=== PATIENT | female | born 1965 | race Caucasian/White ===

== ENCOUNTER → 2017-05-13 | Outpatient (REF) | payer BC ==
[~2017-05-13] MED LIST: BIOT300T PO; CHRO200T3 PO; FLAX1300 PO; GLUCTAB6 PO; LEVO125T4 PO; MAGN200T PO; MULTTAB PO; VITA10002 PO; ZOVI1CAP PO
[2017-05-13 11:34] LABS: MEAN CORPUSCULAR HEMOGLOBIN 29.7 pg (27.0-33.0); MEAN CORPUSCULAR HGB CONC 32.8 g/dl (32.0-36.5); MEAN CORPUSCULAR VOLUME 90.5 fl (80.0-96.0); RED CELL DISTRIBUTION WIDTH 13.6 % (11.5-14.5); WHITE BLOOD COUNT 4.3 10^3/uL (4.0-10.0)
[2017-05-13 12:10] LABS: CALCIUM LEVEL 9.7 MG/DL (8.5-10.1); CREATININE FOR GFR 1.15 MG/DL (0.55-1.02); GLOMERULAR FILTRATION RATE 52.8 (>51); POTASSIUM SERUM 4.7 MEQ/L (3.5-5.1)
== END ==
LOC: M SFHCLERA 09:27
PROVIDERS: ATTEND Family Medicine
DX: F41.9 Anxiety disorder, unspecified (principal); E03.9 Hypothyroidism, unspecified

== ENCOUNTER → 2017-05-19 | Outpatient (REF) | payer BC ==
[2017-05-19 19:20] LABS: CREATININE FOR GFR 1.05 MG/DL (0.55-1.02); GLOMERULAR FILTRATION RATE 58.6 (>51); POTASSIUM SERUM 4.3 MEQ/L (3.5-5.1)
== END ==
LOC: M SFHCLERA 16:20
PROVIDERS: ATTEND Family Medicine
DX: R79.9 Abnormal finding of blood chemistry, unspecified (principal)

== ENCOUNTER → 2017-06-23 | Outpatient (REF) | payer BC | LOC: M SFHCLERA 16:14 | PROVIDERS: ATTEND Family Medicine | DX: E03.9 Hypothyroidism, unspecified (principal) ==

== ENCOUNTER → 2017-08-09 | Outpatient (REF) | payer BC ==
[2017-08-09 22:01] LABS: APPEARANCE, URINE HAZY (CLEAR); BACTERIA, URINE AUTO 1+ (NEGATIVE); BILIRUBIN, URINE AUTO NEGATIVE (NEGATIVE); BLOOD, URINE BLOOD NEGATIVE (NEGATIVE); COLOR, URINE YELLOW (YELLOW); GLUCOSE, URINE (UA) AUTO NEGATIVE (NEGATIVE); KETONE, URINE AUTO TRACE mg/dL (NEGATIVE); LEUKOCYTE ESTERASE, URINE AUTO 3+ (NEGATIVE); MUCUS, URINE SMALL (NEGATIVE); NITRITE, URINE AUTO NEGATIVE (NEGATIVE); PROTEIN, URINE AUTO NEGATIVE (NEGATIVE); RBC, URINE AUTO 3 /HPF (0-3); SPECIFIC GRAVITY URINE AUTO 1.026 (1.002-1.035); SQUAMOUS EPITHELIAL CELL UR AU 1 /HPF (0-6); UROBILINOGEN, URINE AUTO 0.2 mg/dL (0.0-2.0); WBC, URINE AUTO 38 /HPF (0-3)
[2017-08-09 22:06] LABS: ESTIMATED AVERAGE GLUCOSE 105 MG/DL (60-110); HEMOGLOBIN A1c 5.3 %
[2017-08-09 22:21] LABS: MAU/CREAT RATIO 6.2 MCG/MG (0.0-30.0)
== END ==
LOC: M SFHCLERA 14:54
DX: R94.4 Abnormal results of kidney function studies (principal)
CPT/HCPCS: 83036

== ENCOUNTER → 2017-08-10 | Outpatient (REF) | payer BC | LOC: M SFHCLERA 17:47 | DX: R82.90 Unspecified abnormal findings in urine (principal) ==

== ENCOUNTER → 2017-08-13 | Outpatient (CLI) | payer BC | LOC: M RAD 09:07 | DX: R94.4 Abnormal results of kidney function studies (principal); R93.421 Abnormal radiologic findings on diagnostic imaging of right kidney | CPT/HCPCS: 76775 ==

== ENCOUNTER → 2017-08-24 | Outpatient (CLI) | payer BC ==
[~2017-08-24] MED LIST changes: -BIOT300T PO; -CHRO200T3 PO; -FLAX1300 PO; +GASTROGRAFIN SOLUTION 30ML (Q9963) As Ordered; -GLUCTAB6 PO; +ISOVUE-370 76% 100ML VIAL (Q9967) As Ordered; -LEVO125T4 PO; -MAGN200T PO; -MULTTAB PO; -VITA10002 PO; -ZOVI1CAP PO
== END ==
LOC: M RAD 11:26
DX: R93.429 Abnormal radiologic findings on diagnostic imaging of unspecified kidney (principal); D18.03 Hemangioma of intra-abdominal structures
CPT/HCPCS: Q9963

== ENCOUNTER → 2017-11-04 | Outpatient (REF) | payer BC ==
[2017-11-04 22:05] LABS: APPEARANCE, URINE CLEAR (CLEAR); BACTERIA, URINE AUTO NEGATIVE (NEGATIVE); BILIRUBIN, URINE AUTO NEGATIVE (NEGATIVE); BLOOD, URINE BLOOD NEGATIVE (NEGATIVE); COLOR, URINE YELLOW (YELLOW); GLUCOSE, URINE (UA) AUTO NEGATIVE (NEGATIVE); KETONE, URINE AUTO NEGATIVE (NEGATIVE); LEUKOCYTE ESTERASE, URINE AUTO 2+ (NEGATIVE); MUCUS, URINE SMALL (NEGATIVE); NITRITE, URINE AUTO NEGATIVE (NEGATIVE); PROTEIN, URINE AUTO NEGATIVE (NEGATIVE); RBC, URINE AUTO 1 /HPF (0-3); SPECIFIC GRAVITY URINE AUTO 1.015 (1.002-1.035); SQUAMOUS EPITHELIAL CELL UR AU 1 /HPF (0-6); UROBILINOGEN, URINE AUTO 0.2 mg/dL (0.0-2.0); WBC, URINE AUTO 4 /HPF (0-3)
[2017-11-04 22:12] LABS: ESTIMATED AVERAGE GLUCOSE 108 MG/DL (60-110); HEMOGLOBIN A1c 5.4 %
[2017-11-04 22:23] LABS: ANION GAP 6 MEQ/L (8-16); BLOOD UREA NITROGEN 15 MG/DL (7-18); CARBON DIOXIDE LEVEL 29 MEQ/L (21-32); CHLORIDE LEVEL 107 MEQ/L (98-107); CREATININE FOR GFR 1.12 MG/DL (0.55-1.30); GLOMERULAR FILTRATION RATE 54.2 (>51); GLUCOSE, FASTING 101 MG/DL (70-100); POTASSIUM SERUM 4.5 MEQ/L (3.5-5.1); SODIUM LEVEL 142 MEQ/L (136-145)
[2017-11-04 22:48] LABS: CREATININE, URINE 89.2 MG/DL; MALB URINE SIEMENS 8.4 MG/L; MAU/CREAT RATIO 9.4 MCG/MG (0.0-30.0)
== END ==
LOC: M SFHCLERA 16:08
DX: R94.4 Abnormal results of kidney function studies (principal)
CPT/HCPCS: 84443

== ENCOUNTER → 2017-11-08 | Outpatient (CLI) | payer BC | LOC: M RAD 11:07 | DX: M26.603 Bilateral temporomandibular joint disorder, unspecified (principal) | CPT/HCPCS: 70336 ==

== ENCOUNTER → 2017-11-09 | Outpatient (REF) | payer BC | LOC: M SFHCLERA 08:05 | DX: R82.90 Unspecified abnormal findings in urine (principal) | CPT/HCPCS: 87086 ==

== ENCOUNTER → 2017-12-29 | Outpatient (REF) | payer BC ==
[2017-12-29 16:43] LABS: HEMATOCRIT 38.8 % (36.0-47.0); HEMOGLOBIN 12.7 g/dl (12.0-15.5); MEAN CORPUSCULAR HEMOGLOBIN 29.5 pg (27.0-33.0); MEAN CORPUSCULAR HGB CONC 32.7 g/dl (32.0-36.5); PLATELET COUNT, AUTOMATED 252 10^3/uL (150-450); RED BLOOD COUNT 4.31 10^6/uL (4.00-5.40); RED CELL DISTRIBUTION WIDTH 13.6 % (11.5-14.5); WHITE BLOOD COUNT 4.7 10^3/uL (4.0-10.0)
[2017-12-29 16:56] LABS: ALBUMIN 4.4 GM/DL (3.2-5.2); ALBUMIN/GLOBULIN RATIO 1.38 (1.00-1.93); ALKALINE PHOSPHATASE 87 U/L (45-117); ALT/SGPT 35 U/L (12-78); ANION GAP 7 MEQ/L (8-16); AST/SGOT 18 U/L (7-37); BILIRUBIN,TOTAL 0.3 MG/DL (0.2-1.0); BLOOD UREA NITROGEN 16 MG/DL (7-18); CALCIUM LEVEL 9.7 MG/DL (8.5-10.1); CARBON DIOXIDE LEVEL 29 MEQ/L (21-32); CHLORIDE LEVEL 106 MEQ/L (98-107); CREATININE FOR GFR 1.12 MG/DL (0.55-1.30); GLOMERULAR FILTRATION RATE 54.2 (>51); GLUCOSE, FASTING 89 MG/DL (70-100); POTASSIUM SERUM 4.9 MEQ/L (3.5-5.1); SODIUM LEVEL 142 MEQ/L (136-145); TOTAL PROTEIN 7.6 GM/DL (6.4-8.2)
== END ==
LOC: M SFHCLERA 11:26
DX: Z01.818 Encounter for other preprocedural examination (principal)
CPT/HCPCS: 80053

== ENCOUNTER → 2018-05-12 | Outpatient (REF) | payer BC | LOC: M SFHCLERA 09:09 | DX: E03.9 Hypothyroidism, unspecified (principal) | CPT/HCPCS: 84443 ==

== ENCOUNTER → 2018-09-27 | Outpatient (CLI) | payer BC ==
[~2018-09-27] MED LIST changes: +BIOT300T3 PO; +CHRO200T3 PO; +FLAX1300 PO; -GASTROGRAFIN SOLUTION 30ML (Q9963) As Ordered; +GLUCTAB6 PO; -ISOVUE-370 76% 100ML VIAL (Q9967) As Ordered; +LEVO125T4 PO; +MAGN200T PO; +MULTTAB PO; +VITA10002 PO; +ZOVI1CAP PO
--- NOTE | 2018-09-28 02:41 | REP ---
Clinical: Right knee pain Technique: AP, lateral, bilateral oblique and sunrise views. Findings: Cortical irregularity and subtle spurring is best noted along the lateral femoral condyle. There is increased sclerosis to the tibial plateau with decreased medial joint space narrowing. Lateral and sunrise views demonstrate subchondral sclerosis along the posterior patellar margin with decreased patellofemoral joint space and marginal spurring as well as fraying along the anterior margin. No acute fracture dislocation. Impression: Moderate tricompartmental osteoarthritic degenerative change. Electronically Signed by Castillo Mar MD 09/28/2018 02:33 A
== END ==
LOC: M LRY 14:40
PROVIDERS: ATTEND Nurse Practitioner Family
DX: M17.11 Unilateral primary osteoarthritis, right knee (principal); M25.561 Pain in right knee

== ENCOUNTER → 2018-11-19 | Outpatient (REF) | payer BC ==
[2018-11-19 19:09] LABS: CALCIUM LEVEL 9.1 MG/DL (8.5-10.1); CHOLESTEROL RISK RATIO 3.955 (<5); CREATININE FOR GFR 1.11 MG/DL (0.55-1.30); GLOMERULAR FILTRATION RATE 54.5 (>51); POTASSIUM SERUM 4.6 MEQ/L (3.5-5.1); THYROID STIMULATING HORMONE 0.366 uIU/ML (0.358-3.740)
== END ==
LOC: M SFHCLERA 09:05
PROVIDERS: ATTEND Family Medicine
DX: E03.9 Hypothyroidism, unspecified (principal); F41.9 Anxiety disorder, unspecified; Z13.220 Encounter for screening for lipoid disorders

== ENCOUNTER → 2019-05-16 | Outpatient (REF) | payer BC ==
[~2019-05-16] MED LIST changes: -BIOT300T3 PO; +BIOT300T8 PO; +CYAN100049 PO; -VITA10002 PO
[2019-05-16 11:33] LABS: BASO % 0.7 % (0.0-1.0); EOS # 0.1 10^3/uL (0.0-0.5); EOS % 1.8 % (0.0-3.0); HEMATOCRIT 35.9 % (36.0-47.0); HEMOGLOBIN 11.7 g/dl (12.0-15.5); LYMPH # 1.5 10^3/uL (1.5-5.0); MEAN CORPUSCULAR HEMOGLOBIN 29.8 pg (27.0-33.0); MEAN CORPUSCULAR HGB CONC 32.6 g/dl (32.0-36.5); MEAN CORPUSCULAR VOLUME 91.6 fl (80.0-96.0); MONO # 0.6 10^3/uL (0.0-0.8); MONO % 12.5 % (0.0-5.0); NEUTROPHILS # 2.4 10^3/uL (1.5-8.5); NEUTROPHILS % 51.6 % (36.0-66.0); PLATELET COUNT, AUTOMATED 295 10^3/uL (150-450); RED BLOOD COUNT 3.92 10^6/uL (4.00-5.40); WHITE BLOOD COUNT 4.6 10^3/uL (4.0-10.0)
[2019-05-16 11:47] LABS: BLOOD UREA NITROGEN 13 MG/DL (7-18); C REACTIVE PROTEIN QUANTITATIV 3.16 MG/DL (0.00-0.30); CALCIUM LEVEL 9.9 MG/DL (8.5-10.1); CARBON DIOXIDE LEVEL 30 MEQ/L (21-32); CHLORIDE LEVEL 108 MEQ/L (98-107); CREATININE FOR GFR 1.07 MG/DL (0.55-1.30); GLOMERULAR FILTRATION RATE 56.9 (>51); GLUCOSE, FASTING 85 MG/DL (70-100); POTASSIUM SERUM 4.4 MEQ/L (3.5-5.1); RHEUMATOID FACTOR QUANT < 10.0 IU/ML (<15.0); SODIUM LEVEL 143 MEQ/L (136-145)
[2019-05-16 12:03] LABS: ERYTHROCYTE SEDIMENTATION RATE 59 mm/hr (0-30)
[2019-05-19 00:11] LABS: ANA (HEP2) Positive (.); CYCLIC CITRULLINATED PEPTIDE 11 units (0-19)
== END ==
LOC: M SFHCLERA 08:06
PROVIDERS: ATTEND Family Medicine
DX: M25.50 Pain in unspecified joint (principal); E03.9 Hypothyroidism, unspecified

== ENCOUNTER → 2019-05-16 | Outpatient (CLI) | payer BC ==
--- NOTE | 2019-05-16 16:25 | REP ---
Four views bilateral hands: 05/16/2019. Indication: Hand pain. Comparison: None. Findings: There is no acute fracture, subluxation or dislocation. No significant arthritic sequelae are present. No erosive lesions of the visualized bones are noted. Impression: No acute fracture or significant arthritic sequelae. Electronically Signed by Ha Morris DO 05/16/2019 04:17 P
== END ==
LOC: M LRY 08:20
PROVIDERS: ATTEND Family Medicine
DX: M25.50 Pain in unspecified joint (principal)

== ENCOUNTER → 2019-06-14 | Outpatient (REF) | payer BC ==
[2019-06-14 20:25] LABS: C REACTIVE PROTEIN QUANTITATIV < 0.30 MG/DL (0.00-0.30); IRON (FE) 50 UG/DL (50-170); PERCENT SATURATION 14.8 % (13.2-45.0); TOTAL IRON BINDING CAPACITY 338 UG/DL (250-450)
[2019-06-14 20:27] LABS: BASO % 0.7 % (0.0-1.0); EOS # 0.1 10^3/uL (0.0-0.5); EOS % 1.5 % (0.0-3.0); HEMATOCRIT 40.2 % (36.0-47.0); HEMOGLOBIN 12.9 g/dl (12.0-15.5); LYMPH # 2.2 10^3/uL (1.5-5.0); LYMPH % 41.3 % (24.0-44.0); MEAN CORPUSCULAR HEMOGLOBIN 29.1 pg (27.0-33.0); MEAN CORPUSCULAR HGB CONC 32.1 g/dl (32.0-36.5); MEAN CORPUSCULAR VOLUME 90.7 fl (80.0-96.0); MONO # 0.6 10^3/uL (0.0-0.8); MONO % 10.7 % (0.0-5.0); NEUTROPHILS # 2.4 10^3/uL (1.5-8.5); NEUTROPHILS % 45.6 % (36.0-66.0); PLATELET COUNT, AUTOMATED 244 10^3/uL (150-450); RED BLOOD COUNT 4.43 10^6/uL (4.00-5.40); WHITE BLOOD COUNT 5.4 10^3/uL (4.0-10.0)
[2019-06-14 20:34] LABS: VITAMIN B12 LEVEL 625 PG/ML
[2019-06-14 20:35] LABS: FOLATE > 24.0 NG/ML
[2019-06-14 20:49] LABS: ERYTHROCYTE SEDIMENTATION RATE 20 mm/hr (0-30)
== END ==
LOC: M SFHCLERA 16:54
PROVIDERS: ATTEND Family Medicine
DX: D64.9 Anemia, unspecified (principal); R79.82 Elevated C-reactive protein (CRP)

== ENCOUNTER → 2019-06-15 | Outpatient (REF) | payer BC ==
[2019-06-19 14:07] LABS: E CHAFFEENSIS IgG TITER Negative (Neg:<1:64); E CHAFFEENSIS IgM TITER Negative (Neg:<1:20); HUMAN GRANULCYTIC EHRLIC IgG Negative (Neg:<1:64); HUMAN GRANULCYTIC EHRLIC IgM Negative (Neg:<1:20); Lyme Disease IgG/IgM Antibodie <0.91 ISR (0.00-0.90); Lyme Disease IgM Ab Quantitati <0.80 index (0.00-0.79)
== END ==
LOC: M SFHCLERA 16:13
PROVIDERS: ATTEND Family Medicine
DX: R53.81 Other malaise (principal); M25.50 Pain in unspecified joint; R50.9 Fever, unspecified; R53.83 Other fatigue

== ENCOUNTER → 2019-12-04 | Outpatient (REF) | payer BC | LOC: M SFHCLERA 16:11 | PROVIDERS: ATTEND Family Medicine | DX: E03.9 Hypothyroidism, unspecified (principal) ==

== ENCOUNTER → 2019-12-29 | Outpatient (CLI) | payer BC | LOC: M LABSMTC 12:10 | PROVIDERS: ATTEND Family Medicine | DX: Z11.59 Encounter for screening for other viral diseases (principal) | CPT/HCPCS: 87486; 87581; 87633; 87798; C9803 ==

== ENCOUNTER → 2020-04-05 | Outpatient (CLI) | payer BC ==
[~2020-04-05] MED LIST changes: +CHRO1TAB5 PO; -CHRO200T3 PO
== END ==
LOC: M LABSMTC 09:51
PROVIDERS: ATTEND Orthopaedic Surgery
DX: Z20.828 Contact with and (suspected) exposure to other viral communicable diseases (principal)

== ENCOUNTER → 2020-06-03 | Outpatient (REF) | payer BC ==
[2020-06-03 16:12] LABS: BASO % 0.8 % (0.0-1.0); EOS # 0.1 10^3/uL (0.0-0.5); EOS % 1.7 % (0.0-3.0); HEMATOCRIT 36.8 % (36.0-47.0); HEMOGLOBIN 11.4 g/dl (12.0-15.5); LYMPH % 36.6 % (24.0-44.0); MEAN CORPUSCULAR HEMOGLOBIN 28.2 pg (27.0-33.0); MEAN CORPUSCULAR VOLUME 91.1 fl (80.0-96.0); MONO # 0.6 10^3/uL (0.0-0.8); NEUTROPHILS # 2.6 10^3/uL (1.5-8.5); NEUTROPHILS % 48.7 % (36.0-66.0); PLATELET COUNT, AUTOMATED 270 10^3/uL (150-450); RED BLOOD COUNT 4.04 10^6/uL (4.00-5.40); WHITE BLOOD COUNT 5.3 10^3/uL (4.0-10.0)
[2020-06-03 16:20] LABS: BILIRUBIN,TOTAL 0.3 MG/DL (0.2-1.0); CALCIUM LEVEL 9.6 MG/DL (8.5-10.1); CHOLESTEROL RISK RATIO 4.09 (<5); CREATININE FOR GFR 1.15 MG/DL (0.55-1.30); GLOMERULAR FILTRATION RATE 52.2 (>51); THYROID STIMULATING HORMONE 0.81 uIU/ML (0.358-3.740); TOTAL PROTEIN 7.3 GM/DL (6.4-8.2)
[2020-06-03 16:59] LABS: HEMOGLOBIN A1c 5.4 %
== END ==
LOC: M SFHCLERA 11:00
PROVIDERS: ATTEND Family Medicine
DX: E05.00 Thyrotoxicosis with diffuse goiter without thyrotoxic crisis or storm (principal); F43.22 Adjustment disorder with anxiety; Z13.1 Encounter for screening for diabetes mellitus; Z13.220 Encounter for screening for lipoid disorders

== ENCOUNTER 2020-12-22 10:01 | Emergency (ER) | payer BC ==
[~2020-12-22] VITALS: Ht 152.4 cm; Wt 68.2 kg
[2020-12-22] MEDS ORDERED: ACYC1TAB (10:09)
[2020-12-22] MEDS ORDERED: BUPR300T92 (10:09)
[2020-12-22] MEDS ORDERED: PROPARACAINE 0.5% OPHTH SOL 15ML XX ONE (10:30)
[2020-12-22] MEDS ORDERED: FLUORESCEIN OPHTH 1 MG STRIP XX ONE (10:30)
[2020-12-22] MEDS ORDERED: POLYSOL OD (11:45)
[2020-12-22 11:50] VITALS: BP 128/64
[2020-12-22] MEDS ORDERED: BOOSTRIX/ADACEL VACCINE (DIPHTH/PERTUSS/ACELL/TETANUS) 0.5ML SYR IM ONE (11:55)
== END 2020-12-22 11:51 | disposition home or self-care (01) ==
LOC: M ED 10:01
DX: S05.01XA Injury of conjunctiva and corneal abrasion without foreign body, right eye, initial encounter (principal); S00.251A Superficial foreign body of right eyelid and periocular area, initial encounter; X58.XXXA Exposure to other specified factors, initial encounter; Y92.9 Unspecified place or not applicable; Y93.9 Activity, unspecified; Y99.9 Unspecified external cause status; E05.00 Thyrotoxicosis with diffuse goiter without thyrotoxic crisis or storm; Z79.899 Other long term (current) drug therapy; J30.9 Allergic rhinitis, unspecified

== ENCOUNTER → 2022-05-25 | Outpatient (CLI) | payer BC ==
[~2022-05-25] MED LIST changes: +ACYC1TAB; +BUPR300T92; -GLUCTAB6 PO; +GLUCTAB7 PO; +POLYSOL OD
== END ==
LOC: M SOG 10:35
PROVIDERS: ATTEND Orthopaedic Surgery Adult Reconstructive Orthopaedic Surgery
DX: M25.561 Pain in right knee (principal); M17.11 Unilateral primary osteoarthritis, right knee; M25.461 Effusion, right knee

== ENCOUNTER → 2022-06-22 | Outpatient (CLI) | payer BC ==
[2022-06-22 14:07] LABS: ALBUMIN 4.1 G/DL (3.2-5.2); CARBON DIOXIDE LEVEL 27 MMOL/L (20-31); CHLORIDE LEVEL 104 MMOL/L (98-107); SODIUM LEVEL 141 MMOL/L (136-145)
[2022-06-22 14:11] LABS: BLOOD UREA NITROGEN 17 MG/DL (9-23); TRIGLYCERIDES LEVEL 201 MG/DL (<150)
[2022-06-22 14:12] LABS: CALCIUM LEVEL 9.8 MG/DL (8.5-10.1); GLUCOSE, FASTING 89 MG/DL (60-100)
[2022-06-22 14:13] LABS: ALKALINE PHOSPHATASE 97 U/L (46-116); HDL CHOLESTEROL 58.4 MG/DL (>40)
[2022-06-22 14:14] LABS: ALT/SGPT 23 U/L (7.0-40); AST/SGOT 20 U/L (<34); BILIRUBIN,TOTAL 0.4 MG/DL (0.3-1.2); CHOLESTEROL LEVEL 262 MG/DL (<200); CHOLESTEROL RISK RATIO 4.48 (<5); CREATININE FOR GFR 0.89 MG/DL (0.55-1.30); GLOMERULAR FILTRATION RATE > 60.0 (>51); LDL CHOLESTEROL 163.4 MG/DL (<100); NON-HDL-C 204 MG/DL; TOTAL PROTEIN 7.4 G/DL (5.7-8.2)
[2022-06-22 14:16] LABS: THYROID STIMULATING HORMONE 0.315 uIU/ML (0.55-4.78)
[2022-06-22 14:17] LABS: POTASSIUM SERUM 4.3 MMOL/L (3.5-5.1)
== END ==
LOC: M LAB 13:08
PROVIDERS: ATTEND Family Medicine
DX: E78.2 Mixed hyperlipidemia (principal)

== ENCOUNTER → 2022-08-03 | Outpatient (CLI) | payer BC | LOC: M LAB 16:07 | PROVIDERS: ATTEND Family Medicine | DX: E03.9 Hypothyroidism, unspecified (principal) ==

== ENCOUNTER → 2022-10-16 | Outpatient (CLI) | payer BC | LOC: M SOG 12:49 | PROVIDERS: ATTEND Orthopaedic Surgery | DX: M17.0 Bilateral primary osteoarthritis of knee (principal) ==

== ENCOUNTER → 2022-11-09 | Outpatient (REF) | payer BC | LOC: M SFHCWAGY 17:30 | PROVIDERS: ATTEND Nurse Practitioner Family | DX: Z12.4 Encounter for screening for malignant neoplasm of cervix (principal) | CPT/HCPCS: 87624; G0123 ==

== ENCOUNTER → 2022-12-11 | Outpatient (CLI) | payer BC | LOC: M LAB 14:01 | PROVIDERS: ATTEND Family Medicine | DX: E03.9 Hypothyroidism, unspecified (principal) ==

== ENCOUNTER → 2022-12-18 | Outpatient (CLI) | payer BC | LOC: M WHC 10:35 | PROVIDERS: ATTEND Nurse Practitioner Family | DX: Z12.31 Encounter for screening mammogram for malignant neoplasm of breast (principal) ==

== ENCOUNTER 2022-12-25 10:18 | Outpatient (RCR) | payer BC | END 2023-01-22 | LOC: M PT 10:18 | PROVIDERS: ATTEND Orthopaedic Surgery | DX: M17.11 Unilateral primary osteoarthritis, right knee (principal) ==

== ENCOUNTER → 2023-02-17 | Outpatient (CLI) | payer BC ==
[2023-02-17 16:29] LABS: BASO % 0.4 % (0.0-1.0); EOS # 0.1 10^3/uL (0.0-0.5); EOS % 1.6 % (0.0-3.0); HEMOGLOBIN 13.4 g/dl (12.0-15.5); LYMPH # 2.4 10^3/uL (1.5-5.0); LYMPH % 43.3 % (24.0-44.0); MEAN CORPUSCULAR HEMOGLOBIN 28.8 pg (27.0-33.0); MEAN CORPUSCULAR HGB CONC 32.7 g/dl (32.0-36.5); MONO # 0.4 10^3/uL (0.0-0.8); MONO % 7.3 % (2.0-8.0); NEUTROPHILS # 2.7 10^3/uL (1.5-8.5); NEUTROPHILS % 47.2 % (36.0-66.0); PLATELET COUNT, AUTOMATED 258 10^3/uL (150-450); RED BLOOD COUNT 4.66 10^6/uL (4.00-5.40); WHITE BLOOD COUNT 5.6 10^3/uL (4.0-10.0)
[2023-02-17 16:47] LABS: INR 0.96
[2023-02-17 17:00] LABS: ALBUMIN 4.2 G/DL (3.2-5.2); ALKALINE PHOSPHATASE 92 U/L (46-116); ALT/SGPT 26 U/L (7.0-40); AST/SGOT 16 U/L (<34); BILIRUBIN,TOTAL 0.6 MG/DL (0.3-1.2); BLOOD UREA NITROGEN 16 MG/DL (9-23); CALCIUM LEVEL 9.7 MG/DL (8.5-10.1); CARBON DIOXIDE LEVEL 28 MMOL/L (20-31); CHLORIDE LEVEL 102 MMOL/L (98-107); CREATININE FOR GFR 0.92 MG/DL (0.55-1.30); GLOMERULAR FILTRATION RATE > 60.0 (>51); GLUCOSE, FASTING 125 MG/DL (60-100); POTASSIUM SERUM 3.9 MMOL/L (3.5-5.1); SODIUM LEVEL 140 MMOL/L (136-145); TOTAL PROTEIN 7.3 G/DL (5.7-8.2)
== END ==
LOC: M WUC 13:59
PROVIDERS: ATTEND Family Medicine
DX: Z01.818 Encounter for other preprocedural examination (principal); M17.11 Unilateral primary osteoarthritis, right knee

== ENCOUNTER → 2023-02-24 | Outpatient (CLI) | payer BC ==
[~2023-02-24] MED LIST changes: -ACYC1TAB; +ACYC1TAB PO; +EQL50TAB2 PO; +LUTE15CA PO; +OMEG10002 PO; +PROBCAP14 PO; +SUPE5000 PO; +SYNT112T2 PO; +THERTAB52 PO
== END ==
LOC: M RAD 12:18
PROVIDERS: ATTEND Orthopaedic Surgery
DX: M17.11 Unilateral primary osteoarthritis, right knee (principal)

== ENCOUNTER 2023-03-09 06:04 | Observation (INO) | payer BC ==
[~2023-03-09] VITALS: Ht 149.9 cm; Wt 72.0 kg
[~2023-03-09 06:04] MED LIST changes: +ROPIVA 100MG/KETOR 15MG/EPINEPHRINE 0.3MG IN NS 50ML SYRINGE PA ONE; +TRANEXAMIC ACID 100 MG/ML 10ML VIAL IV ONE; +ceFAZolin SOD 2 GM in IV 1 EA IV ONE; +oxyCODONE 5MG TAB PO ONE
[2023-03-09] MEDS ORDERED: LR 1,000 ML IV SCH ×2 (06:15→10:25)
[2023-03-09] MEDS ORDERED: ONDANSETRON 4MG 2ML VIAL As Ordered ONE (07:17)
[2023-03-09] MEDS ORDERED: LIDOCAINE 2% 100MG/5ML SDV (FOR ANES.) As Ordered ONE (07:17)
[2023-03-09] MEDS ORDERED: ROCURONIUM BROMIDE 50MG/5ML VIAL As Ordered ONE ×2 (07:17→08:29)
[2023-03-09] MEDS ORDERED: HYDROmorphone HCL 2MG/ML 1ML VIAL As Ordered ONE (07:17)
[2023-03-09] MEDS ORDERED: TRANEXAMIC ACID 100 MG/ML 10ML VIAL As Ordered ONE (07:17)
[2023-03-09] MEDS ORDERED: propofoL 200 MG/20 ML VIAL As Ordered ONE (07:17)
[2023-03-09] MEDS ORDERED: MIDAZOLAM INJ 2MG/2ML VIAL As Ordered ONE (07:17)
[2023-03-09] MEDS ORDERED: fentaNYL 100 MCG/2 ML INJECTION As Ordered ONE (07:17)
[2023-03-09] MEDS ORDERED: ACETAMINOPHEN 1000MG 100ML IV BAG As Ordered ONE (07:27)
[2023-03-09] MEDS ORDERED: ePHEDrine SULFATE 25 MG/5 ML(5MG/ML) SYRINGE As Ordered ONE (08:18)
[2023-03-09] MEDS ORDERED: VANCOMYCIN 1000MG/20ML VIAL As Ordered ONE (08:19)
[2023-03-09] MEDS ORDERED: KETOROLAC 60MG 2ML VIAL As Ordered ONE (08:22)
[2023-03-09] MEDS ORDERED: SUGAMMADEX SODIUM 500 MG/5 ML VIAL (BRIDION) As Ordered ONE (08:30)
[2023-03-09] MEDS ORDERED: ONDANSETRON 4MG 2ML VIAL IV PRN ×2 (10:15→10:25)
[2023-03-09] MEDS ORDERED: HYDROMORPHONE HCL 0.5 MG/ 0.5 ML SYRINGE IV PRN (10:15)
[2023-03-09] MEDS ORDERED: oxyCODONE 5MG TAB PO PRN ×2 (10:25)
[2023-03-09] MEDS ORDERED: SENNA 8.6 MG TAB (SENOKOT) PO PRN (10:25)
[2023-03-09] MEDS: fentaNYL 100 MCG/2 ML INJECTION IV PRN ×4 (11:04→11:35)
[2023-03-09] MEDS: oxyCODONE 5MG TAB PO PRN ×2 (11:38→12:10)
[2023-03-09] MEDS ORDERED: MIDAZOLAM INJ 2MG/2ML VIAL IV PRN (12:25)
[2023-03-09] MEDS ORDERED: dexAMETHasone 10MG/1ML VIAL PRES.FREE PN ONE (12:25)
[2023-03-09] MEDS ORDERED: EPINEPHrine INJ 1 MG/ML 1ML AMP PN ONE (12:25)
[2023-03-09] MEDS ORDERED: ROPIvacaine 0.5% 30ML VIAL PN ONE (12:25)
[2023-03-09] MEDS ORDERED: LIDOCAINE 1% SDV 5ML VIAL PN ONE (12:25)
[2023-03-09 14:40] VITALS: BP 119/67; TEMP 97.7; O2SAT 98
[2023-03-09] MEDS ORDERED: RA M500C PO (15:14)
[2023-03-09 15:15] VITALS: BP 115/67; TEMP 97.7; O2SAT 95
[2023-03-09] MEDS ORDERED: HOME MED LIST COMPLETE! XX SCH (15:20)
[2023-03-09 16:15] VITALS: BP 110/63; TEMP 97.5; O2SAT 93
[2023-03-09] MEDS: ceFAZolin SOD 2 GM in IV 1 EA IV SCH (16:19)
[2023-03-09 17:15] VITALS: BP 110/63; TEMP 97.7; O2SAT 93
[2023-03-09 18:15] VITALS: BP 107/63; TEMP 97.9; O2SAT 95
[2023-03-09] MEDS: ACETAMINOPHEN TAB 650MG DOSE (2X325MG) PO SCH (18:35)
[2023-03-09 19:15] VITALS: BP 104/61; TEMP 97.9; O2SAT 96
[2023-03-09] MEDS: CelecoXIB (CeleBREX) 100 MG CAP PO SCH (21:07)
[2023-03-09] MEDS: DOCUSATE SODIUM 100MG CAPSULE PO SCH (21:07)
[2023-03-10] MEDS: ceFAZolin SOD 2 GM in IV 1 EA IV SCH (00:26)
[2023-03-10] MEDS: ACETAMINOPHEN TAB 650MG DOSE (2X325MG) PO SCH ×3 (00:29→12:26)
[2023-03-10 01:13] VITALS: BP 103/58; TEMP 98.2; O2SAT 96
[2023-03-10 05:10] VITALS: BP 103/53; TEMP 98.2; O2SAT 93
[2023-03-10] MEDS ORDERED: LEVOTHYROXINE 112MCG TABLET (0.112MG) PO SCH (06:00)
[2023-03-10 06:38] LABS: HEMATOCRIT 30.1 % (36.0-47.0); HEMOGLOBIN 9.8 g/dl (12.0-15.5); MEAN CORPUSCULAR HGB CONC 32.6 g/dl (32.0-36.5); MEAN CORPUSCULAR VOLUME 89.1 fl (80.0-96.0); PLATELET COUNT, AUTOMATED 220 10^3/uL (150-450); RED BLOOD COUNT 3.38 10^6/uL (4.00-5.40); WHITE BLOOD COUNT 13.1 10^3/uL (4.0-10.0)
[2023-03-10 06:52] LABS: INR 1.07; PROTHROMBIN TIME 13.6 SECONDS (12.5-14.5)
[2023-03-10 07:02] LABS: ALBUMIN 3.2 G/DL (3.2-5.2); BLOOD UREA NITROGEN 13 MG/DL (9-23); CALCIUM LEVEL 9.3 MG/DL (8.5-10.1); CARBON DIOXIDE LEVEL 25 MMOL/L (20-31); CHLORIDE LEVEL 109 MMOL/L (98-107); CREATININE FOR GFR 0.85 MG/DL (0.55-1.30); GLOMERULAR FILTRATION RATE > 60.0 (>51); GLUCOSE, FASTING 124 MG/DL (60-100); PHOSPHORUS LEVEL 2.9 MG/DL (2.5-4.9); POTASSIUM SERUM 4.5 MMOL/L (3.5-5.1); SODIUM LEVEL 143 MMOL/L (136-145)
[2023-03-10] MEDS ORDERED: RIVAROXABAN 10MG TAB (XARELTO) PO SCH (09:00)
[2023-03-10] MEDS: DOCUSATE SODIUM 100MG CAPSULE PO SCH (09:42)
[2023-03-10] MEDS: CelecoXIB (CeleBREX) 100 MG CAP PO SCH (09:45)
[2023-03-10 10:15] VITALS: BP 106/64; TEMP 98.1; O2SAT 97
[2023-03-10] MEDS ORDERED: OXYC1TAB23 PO (12:29)
[2023-03-10] MEDS ORDERED: XARE10TA PO (12:29)
== END 2023-03-10 14:40 | disposition home or self-care (01) ==
LOC: M SDC 06:04 → M RR INP 06:05 → M MS5PR 14:30
PROVIDERS: ADMIT Orthopaedic Surgery; ATTEND Orthopaedic Surgery
DX: M17.11 Unilateral primary osteoarthritis, right knee (principal); G43.909 Migraine, unspecified, not intractable, without status migrainosus; E03.9 Hypothyroidism, unspecified; E05.90 Thyrotoxicosis, unspecified without thyrotoxic crisis or storm; Z92.3 Personal history of irradiation; Z79.01 Long term (current) use of anticoagulants; J30.2 Other seasonal allergic rhinitis; Z79.899 Other long term (current) drug therapy
CPT/HCPCS: 27447; 36415; 73560; 80069; 85027; 85610; 87635; 88300; 96365; 96366; 97116; 97161; 97165; 97535; C1776; J0131; J0690; J1100; J1170; J1885; J2250; J2405; J3010; S2900

== ENCOUNTER → 2023-03-22 | Outpatient (CLI) | payer BC ==
[~2023-03-22] MED LIST changes: +OXYC1TAB23 PO; +RA M500C PO; -ROPIVA 100MG/KETOR 15MG/EPINEPHRINE 0.3MG IN NS 50ML SYRINGE PA ONE; -TRANEXAMIC ACID 100 MG/ML 10ML VIAL IV ONE; +XARE10TA PO; -ceFAZolin SOD 2 GM in IV 1 EA IV ONE; -oxyCODONE 5MG TAB PO ONE
== END ==
LOC: M SOG 07:54
PROVIDERS: ATTEND Orthopaedic Surgery
DX: M25.561 Pain in right knee (principal); Z96.651 Presence of right artificial knee joint

== ENCOUNTER → 2023-05-24 | Outpatient (CLI) | payer BC | LOC: M SOG 07:50 | PROVIDERS: ATTEND Orthopaedic Surgery | DX: Z96.651 Presence of right artificial knee joint (principal); Z47.1 Aftercare following joint replacement surgery ==

== ENCOUNTER → 2023-06-22 | Outpatient (CLI) | payer BC ==
[~2023-06-22] MED LIST changes: +GASTROGRAFIN SOLUTION 30ML As Ordered ONE; +ISOVUE-370 76% 100ML VIAL As Ordered ONE
== END ==
LOC: M RAD 11:41
PROVIDERS: ATTEND Physician Assistant
DX: R10.30 Lower abdominal pain, unspecified (principal); R93.2 Abnormal findings on diagnostic imaging of liver and biliary tract
CPT/HCPCS: 74177; Q9963; Q9967

== ENCOUNTER → 2023-06-22 | Outpatient (CLI) | payer BC ==
[~2023-06-22] MED LIST changes: -GASTROGRAFIN SOLUTION 30ML As Ordered ONE; -ISOVUE-370 76% 100ML VIAL As Ordered ONE
[2023-06-22 12:14] LABS: BASO % 0.5 % (0.0-1.0); EOS % 0.7 % (0.0-3.0); HEMATOCRIT 37.4 % (36.0-47.0); HEMOGLOBIN 12.3 g/dl (12.0-15.5); LYMPH # 1.6 10^3/uL (1.5-5.0); LYMPH % 27.2 % (24.0-44.0); MEAN CORPUSCULAR HEMOGLOBIN 28.4 pg (27.0-33.0); MEAN CORPUSCULAR HGB CONC 32.9 g/dl (32.0-36.5); MEAN CORPUSCULAR VOLUME 86.4 fl (80.0-96.0); MONO # 0.4 10^3/uL (0.0-0.8); MONO % 7.1 % (2.0-8.0); NEUTROPHILS # 3.7 10^3/uL (1.5-8.5); NEUTROPHILS % 64.2 % (36.0-66.0); PLATELET COUNT, AUTOMATED 346 10^3/uL (150-450); RED BLOOD COUNT 4.33 10^6/uL (4.00-5.40); WHITE BLOOD COUNT 5.8 10^3/uL (4.0-10.0)
[2023-06-22 12:43] LABS: LIPASE 35 U/L (12-53)
[2023-06-22 12:45] LABS: ALBUMIN 3.6 G/DL (3.2-5.2); ALKALINE PHOSPHATASE 181 U/L (46-116); ALT/SGPT 34 U/L (7.0-40); AST/SGOT 25 U/L (<34); BILIRUBIN,TOTAL 0.4 MG/DL (0.3-1.2); BLOOD UREA NITROGEN 8 MG/DL (9-23); CALCIUM LEVEL 9.8 MG/DL (8.5-10.1); CARBON DIOXIDE LEVEL 27 MMOL/L (20-31); CHLORIDE LEVEL 103 MMOL/L (98-107); CREATININE FOR GFR 0.82 MG/DL (0.55-1.30); GLOMERULAR FILTRATION RATE > 60.0 (>51); GLUCOSE, FASTING 94 MG/DL (60-100); POTASSIUM SERUM 4.1 MMOL/L (3.5-5.1); SODIUM LEVEL 139 MMOL/L (136-145); TOTAL PROTEIN 7.4 G/DL (5.7-8.2)
[2023-06-22 12:47] LABS: THYROID STIMULATING HORMONE 1.837 uIU/ML (0.55-4.78)
== END ==
LOC: M LAB 11:23
PROVIDERS: ATTEND Physician Assistant
DX: R10.30 Lower abdominal pain, unspecified (principal)

== ENCOUNTER → 2023-08-23 | Outpatient (CLI) | payer BC | LOC: M SOG 07:53 | PROVIDERS: ATTEND Orthopaedic Surgery | DX: Z47.1 Aftercare following joint replacement surgery (principal) ==

== ENCOUNTER → 2024-03-10 | Outpatient (CLI) | payer BC ==
[~2024-03-10] MED LIST changes: +BUPR-597; -BUPR300T92
== END ==
LOC: M SOG 07:52
PROVIDERS: ATTEND Orthopaedic Surgery
DX: Z96.651 Presence of right artificial knee joint (principal)

== ENCOUNTER 2024-04-03 09:19 | Day surgery (SDC) | payer BC ==
[~2024-04-03] VITALS: Ht 162.6 cm; Wt 67.9 kg
[2024-04-03] MEDS: NS 1,000 ML IV ONE (09:34)
[2024-04-03] MEDS ORDERED: propofoL 200 MG/20 ML VIAL As Ordered ONE (11:17)
[2024-04-03 11:19] VITALS: TEMP 97.8
[2024-04-03 11:36] VITALS: BP 105/57; O2SAT 98
== END 2024-04-03 11:48 | disposition home or self-care (01) ==
LOC: M OPP 09:19
PROVIDERS: ATTEND Internal Medicine Gastroenterology
DX: Z12.11 Encounter for screening for malignant neoplasm of colon (principal); K64.0 First degree hemorrhoids; K57.30 Diverticulosis of large intestine without perforation or abscess without bleeding; K63.89 Other specified diseases of intestine; E11.9 Type 2 diabetes mellitus without complications; Z79.890 Hormone replacement therapy; Z79.899 Other long term (current) drug therapy

== ENCOUNTER → 2024-04-10 | Outpatient (CLI) | payer BC | LOC: M WHC 13:13 | PROVIDERS: ATTEND Nurse Practitioner Family | DX: Z12.31 Encounter for screening mammogram for malignant neoplasm of breast (principal); R92.313 Mammographic fatty tissue density, bilateral breasts ==

== ENCOUNTER 2024-06-30 09:39 | Emergency (ER) | payer BC ==
[~2024-06-30] VITALS: Ht 152.4 cm; Wt 71.6 kg
[2024-06-30 09:46] VITALS: BP 141/77; TEMP 97.6; O2SAT 97
[2024-06-30] MEDS ORDERED: ESTR62CR (10:06)
[2024-06-30] MEDS ORDERED: ACYC1TAB PO (10:06)
[2024-06-30] MEDS: FLUORESCEIN OPHTH 1MG STRIP OS ONE (11:25)
[2024-06-30] MEDS ORDERED: CETI10CH PO (12:10)
[2024-06-30] MEDS ORDERED: ERYTOIN8 OS (12:10)
[2024-06-30] MEDS: dexAMETHasone 4 MG TAB PO ONE (12:15)
[2024-06-30] MEDS: ERYTHROMYCIN OPHTH OINT OS ONE (12:15)
[2024-06-30] MEDS: CETIRIZINE (ZyrTEC) 10 MG TAB PO ONE (12:15)
== END 2024-06-30 12:18 | disposition home or self-care (01) ==
LOC: M ED 09:39
DX: H01.004 Unspecified blepharitis left upper eyelid (principal); Z91.048 Other nonmedicinal substance allergy status; Z79.2 Long term (current) use of antibiotics; Z79.899 Other long term (current) drug therapy

== ENCOUNTER → 2024-07-07 | Outpatient (REF) | payer BC ==
[~2024-07-07] MED LIST changes: +CETI10CH PO; +ERYTOIN8 OS; +ESTR62CR
== END ==
LOC: M SFHCLERA 13:49
PROVIDERS: ATTEND Family Medicine
DX: E03.9 Hypothyroidism, unspecified (principal)

== ENCOUNTER → 2024-10-06 | Outpatient (CLI) | payer BC ==
[2024-10-09 15:22] LABS: MUMPS VIRUS IgG ANTIBODY > 300.00 AU/mL (>10.99); RUBEOLA IgG ANTIBODY > 300.00 AU/mL (>16.49)
== END ==
LOC: M LAB 13:33
PROVIDERS: ATTEND Family Medicine
DX: Z01.84 Encounter for antibody response examination (principal)

== ENCOUNTER → 2024-11-01 | Outpatient (CLI) | payer BC ==
[2024-11-01 10:11] LABS: BASO % 0.7 % (0.0-1.0); HEMATOCRIT 43.2 % (36.0-47.0); HEMOGLOBIN 14.1 g/dl (12.0-15.5); LYMPH # 1.4 10^3/uL (1.5-5.0); LYMPH % 34.1 % (24.0-44.0); MEAN CORPUSCULAR HEMOGLOBIN 28.3 pg (27.0-33.0); MEAN CORPUSCULAR HGB CONC 32.6 g/dl (32.0-36.5); MEAN CORPUSCULAR VOLUME 86.7 fl (80.0-96.0); MONO # 0.5 10^3/uL (0.0-0.8); NEUTROPHILS # 2.2 10^3/uL (1.5-8.5); PLATELET COUNT, AUTOMATED 246 10^3/uL (150-450); RED BLOOD COUNT 4.98 10^6/uL (4.00-5.40); WHITE BLOOD COUNT 4.1 10^3/uL (4.0-10.0)
[2024-11-01 10:38] LABS: ALBUMIN 4.2 G/DL (3.2-5.2); BILIRUBIN,TOTAL 0.5 MG/DL (0.3-1.2); CALCIUM LEVEL 9.6 MG/DL (8.3-10.6); CHOLESTEROL RISK RATIO 4.34 (<5); CREATININE FOR GFR 0.93 MG/DL (0.55-1.30); GLOMERULAR FILTRATION RATE 70.4 (>45); HDL CHOLESTEROL 66.1 MG/DL (>40); LDL CHOLESTEROL 200.9 MG/DL (<100); NON-HDL-C 220.9 MG/DL; POTASSIUM SERUM 4.1 MMOL/L (3.5-5.1); TOTAL PROTEIN 7.3 G/DL (5.7-8.2)
[2024-11-01 10:41] LABS: THYROID STIMULATING HORMONE 0.616 uIU/ML (0.55-4.78)
== END ==
LOC: M LAB 09:35
PROVIDERS: ATTEND Family Medicine
DX: Z00.00 Encounter for general adult medical examination without abnormal findings (principal); E78.2 Mixed hyperlipidemia; E03.9 Hypothyroidism, unspecified

== ENCOUNTER → 2025-02-16 | Outpatient (CLI) | payer BC ==
[~2025-02-16] MED LIST changes: +ACYC-438 PO; -ACYC1TAB PO; -BUPR-597; +BUPR-766; -EQL50TAB2 PO; +VITA1TAB82 PO
== END ==
LOC: M SOG 06:50
PROVIDERS: ATTEND Physician Assistant
DX: M25.572 Pain in left ankle and joints of left foot (principal)

== ENCOUNTER → 2025-04-11 | Outpatient (CLI) | payer BC | LOC: M WHC 11:06 | PROVIDERS: ATTEND Family Medicine | DX: Z12.31 Encounter for screening mammogram for malignant neoplasm of breast (principal) ==

== ENCOUNTER → 2025-07-06 | Outpatient (REF) | payer BC ==
[~2025-07-06] MED LIST changes: +BIOT5TAB5 PO; -SUPE5000 PO
[2025-07-06 17:52] LABS: ALT/SGPT 27.0 U/L (7.0-40); AST/SGOT 23.0 U/L (<34); CALCIUM LEVEL 9.1 MG/DL (8.3-10.6); CARBON DIOXIDE LEVEL 29.0 MMOL/L (20-31); CHLORIDE LEVEL 108.0 MMOL/L (98-107); CHOLESTEROL LEVEL 129.0 MG/DL (<200); CHOLESTEROL RISK RATIO 2.27 (<5); CREATININE FOR GFR 0.91 MG/DL (0.55-1.30); GLOMERULAR FILTRATION RATE 72.2 (>45); LDL CHOLESTEROL 56.8 MG/DL (<100); NON-HDL-C 72.4 MG/DL; POTASSIUM SERUM 4.4 MMOL/L (3.5-5.1); SODIUM LEVEL 144.0 MMOL/L (136-145); TRIGLYCERIDES LEVEL 78.0 MG/DL (<150)
== END ==
LOC: M LABDRAWC 16:48
PROVIDERS: ATTEND Family Medicine
DX: E78.2 Mixed hyperlipidemia (principal)